=== PATIENT | female | born 1980 | race Hispanic/Latino ===

== ENCOUNTER 2022-05-21 23:02 | Emergency (ER) | payer OTHER ==
[~2022-05-21] VITALS: Ht 170.2 cm; Wt 117.0 kg
[2022-05-21] MEDS: KETOROLAC 60 MG VIAL (30MG/ML) IM ONE (23:32)
[2022-05-22] MEDS ORDERED: CYCL10TA16 PO (00:43)
[2022-05-22] MEDS ORDERED: IBUP-2070 PO (00:43)
[2022-05-22 00:57] VITALS: BP 142/78
== END 2022-05-22 01:06 | disposition home or self-care (01) ==
LOC: EDH 23:02
DX: R25.2 Cramp and spasm (principal); E11.9 Type 2 diabetes mellitus without complications; Z79.1 Long term (current) use of non-steroidal anti-inflammatories (NSAID)
CPT/HCPCS: 99284; 93971; 96372; J1885